=== PATIENT | female | born 1955 | race Caucasian/White ===

== ENCOUNTER → 2021-09-18 | Day surgery (SDC) | payer OTHER ==
[~2021-09-18] VITALS: Ht 162.6 cm; Wt 57.6 kg
[2021-09-18 08:57] LABS: ALBUMIN 3.7 g/dL (3.4-5.0); BILIRUBIN - TOTAL 0.4 mg/dL (0.2-1.0); BUN/CREAT RATIO (CALC) 24.7 RATIO; CREATININE 0.93 mg/dL (0.51-0.95); POTASSIUM 4.2 mmol/L (3.5-5.1); TOTAL PROTEIN 6.7 g/dL (6.4-8.2)
[2021-09-18 09:02] LABS: HCT 40.5 % (37.0-47.0); HGB 13.9 g/dl (12.5-16.0); MCH 33.6 pg (25.0-31.0); MCHC 34.3 g/dL (32.0-36.0); MCV 97.8 fL (78.0-100.0); RBC 4.14 M/uL (4.20-5.40); RDW 12.2 % (11.5-14.0); WBC 5.2 K/uL (4.0-10.5)
== END | disposition home or self-care (01) ==
LOC: FAS 07:46
PROVIDERS: Orthopaedic Surgery
DX: M75.111 Incomplete rotator cuff tear or rupture of right shoulder, not specified as traumatic (principal); M67.813 Other specified disorders of tendon, right shoulder; M19.011 Primary osteoarthritis, right shoulder; S46.211A Strain of muscle, fascia and tendon of other parts of biceps, right arm, initial encounter; S43.431A Superior glenoid labrum lesion of right shoulder, initial encounter; Z20.822 Contact with and (suspected) exposure to COVID-19; X58.XXXA Exposure to other specified factors, initial encounter
CPT/HCPCS: 36415; 71045; 80053; 93005; J0171; J0690; J1100; J2250; J2405; J2704; J2795; J3010; J7120; U0002

== ENCOUNTER 2022-01-15 06:16 | Day surgery (SDC) | payer OTHER ==
[~2022-01-15] VITALS: Ht 160 cm; Wt 57.0 kg
[~2022-01-15 06:16] MED LIST: ASPIRIN325 MG PO; COLLAGEN PEPTIDES PO; CURAMED PO; HERB PO; [UNRECOGNIZED DRUG - OTHER] PO; [UNRECOGNIZED DRUG - OTHER] PO; [UNRECOGNIZED DRUG - OTHER] PO
[2022-01-16 07:36] LABS: BASOPHIL 0.1 % (0-2); EOSINOPHIL 0.2 % (0-7); HCT 32.2 % (37.0-47.0); LYMPHOCYTE 10.9 % (15-48); MCH 33.8 pg (25.0-31.0); MCHC 34.2 g/dL (32.0-36.0); MCV 99.1 fL (78.0-100.0); MONOCYTE 9.2 % (0-12); MPV 9.9 fL (6.0-9.5); NEUTROPHIL 79.3 % (41-80); NRBC 0; PLT 213 K/uL (150-400); RBC 3.25 M/uL (4.20-5.40); RDW 11.8 % (11.5-14.0); WBC 9.9 K/uL (4.0-10.5)
[2022-01-16 08:18] LABS: BUN/CREAT RATIO (CALC) 13.3 RATIO; CREATININE 0.9 mg/dL (0.51-0.95); POTASSIUM 3.7 mmol/L (3.5-5.1)
[2022-01-16] MEDS ORDERED: FEOSOL325 MG PO (08:41)
== END 2022-01-16 12:16 | disposition home or self-care (01) ==
LOC: FAS 06:16 → FMS 09:15 → FAS 13:00
PROVIDERS: Orthopaedic Surgery
DX: M12.811 Other specific arthropathies, not elsewhere classified, right shoulder (principal); I10 Essential (primary) hypertension; Z88.8 Allergy status to other drugs, medicaments and biological substances; Z91.040 Latex allergy status; Z20.822 Contact with and (suspected) exposure to COVID-19; Z79.82 Long term (current) use of aspirin
CPT/HCPCS: 36415; 73020; 80048; 85025; 86850; 86900; 86901; 94010; 94760; 94762; 97162; 97166; 97530-GP; 97535; C1713; C1776; J0171; J0697; J1100; J1885; J2250; J2270; J2405; J2704; J2795; J7120